=== PATIENT | male | born 1965 | race African-American/Black ===

== ENCOUNTER 2018-07-26 13:42 | Emergency (ER) | payer OTHER ==
--- NOTE | 2018-07-26 14:53 | PDOC ---
Rapid Medical Evaluation Chief Complaint: Pain, Acute Time Seen by Provider: 07/26/18 14:52 Medical Evaluation: Allergies Allergy/AdvReac Type Severity Reaction Status Date / Time No Known Allergies Allergy Verified 07/26/18 14:52 07/26/18 14:52 I performed a brief in-person evaluation of this patient. Chief complaint: Reports hyperextended left elbow during martial arts on sunday Pertinent physical exam findings: Tenderness and limited ROM of elbow I have ordered the following: Left elbow xray Patient to proceed to the ED for further evaluation. Discharge Disposition - Diagnosis Elbow injury - Referrals - Patient Instructions - Post Discharge Activity
[2018-07-26 14:56] VITALS: BP 157/89; PULSE 82; TEMP 98.1; BMI 43.0
--- NOTE | 2018-07-26 16:02 | PDOC ---
History of Present Illness - General Chief Complaint: Pain, Acute Stated Complaint: RT ELBOW INJURY Time Seen by Provider: 07/26/18 14:52 History Source: Patient Exam Limitations: No Limitations - History of Present Illness Initial Comments: 07/26/18 16:16 Patient states was performing some martial arts on Sunday this week when he hyperextended his left elbow. States dislocated and reduced itself. This has happened in the past to his right arm with minimal consequence. States was hoping with icing and rest would resolve however has progressively worsen. Patient is taking Xaralta for history of PE which is probably caused excessive swelling Occurred: reports: yesterday Severity: reports: moderate, severe Pain Location: reports: upper extremity (left elbow) Loss of Consciousness: no loss of consciousness Associated Symptoms (Fall): denies symptoms Past History - Travel Traveled outside of the country in the last 30 days: No (left elbow) Close contact w/someone who was outside of country & ill: No - Past Medical History Allergies/Adverse Reactions: Allergies Allergy/AdvReac Type Severity Reaction Status Date / Time No Known Allergies Allergy Verified 07/26/18 14:52 Home Medications: Ambulatory Orders Lisinopril [Prinivil] 20 mg PO DAILY 07/26/18 Metoprolol Succinate 100 mg PO ASDIR 07/26/18 Oxycodone HCl/Acetaminophen [Percocet 5-325 mg Tablet -] 1 - 2 tab PO Q4H PRN # 10 tablet MDD 4 07/26/18 COPD: No CHF: Yes HTN: Yes - Immunization History Immunization Up to Date: Yes - Suicide/Smoking/Psychosocial Hx Smoking History: Never smoked Information on smoking cessation initiated: No Hx Alcohol Use: No Drug/Substance Use Hx: No Review of Systems - Review of Systems Able to Perform ROS?: Yes Is the patient limited Urdu proficient: Yes Constitutional: Yes: See HPI. No: Symptoms Reported, Fever, Malaise HEENTM: Yes: See HPI. No: Symptoms Reported Musculoskeletal: Yes: Symptoms Reported, See HPI, Joint Pain, Joint Swelling ( patient with continued swelling, tenderness to left elbow with range of motion difficulty. Has no crepitus or step-offs, but unable to supinate or pronate at wrist. Neurovascular intact to fingers with strong grasp but has swelling to his left hand as well. Able to contract bicep muscle but difficult due to swelling and pain with range of motion.) Integumentary: Yes: Symptoms Reported, See HPI, Bruising Neurological: Yes: Symptoms reported, See HPI All Other Systems: Reviewed and Negative *Physical Exam - Vital Signs Last Vital Signs Temp Pulse Resp BP Pulse Ox 98.1 F 82 16 157/89 99 07/26/18 14:52 07/26/18 14:52 07/26/18 14:52 07/26/18 14:52 07/26/18 14:52 - Physical Exam General Appearance: Yes: Nourished, Appropriately Dressed, Apparent Distress, Mild Distress, Moderate Distress HEENT: positive: JACKIE, Normal ENT Inspection, TMs Normal, Pharynx Normal Neck: positive: Supple. negative: Tender Respiratory/Chest: positive: Lungs Clear. negative: Chest Tender Gastrointestinal/Abdominal: positive: Soft. negative: Tender Extremity: positive: Tender. negative: Normal Range of Motion Integumentary: positive: Swelling (left elbow), Ecchymosis, Bruising. negative : Normal Color Neurologic: positive: shank paperer II-XII NML intact, Fully Oriented, Alert, Normal Mood/ Affect, Normal Response Moderate Sedation - Procedure Monitoring Vital Signs: Procedure Monitoring Vital Signs Temperature 98.1 F 07/26/18 14:52 Pulse Rate 82 07/26/18 14:52 Respiratory Rate 16 07/26/18 14:52 Blood Pressure 157/89 07/26/18 14:52 O2 Sat by Pulse Oximetry (%) 99 07/26/18 14:52 Progress Note - Progress Note Progress Note: Left elbow strain/sprain, sling placed and patient encouraged to follow up with orthopedist first thing Sunday or return to emergency department for worsening swelling, any compartment syndrome symptoms to hand or forearm. *DC/Admit/Observation/Transfer Diagnosis at time of Disposition: Elbow injury Qualifiers: Encounter type: initial encounter Laterality: left Qualified Code(s): S59.902A - Unspecified injury of left elbow, initial encounter - Discharge Dispostion Disposition: HOME Condition at time of disposition: Stable Decision to Admit order: No - Prescriptions Prescriptions: Oxycodone HCl/Acetaminophen [Percocet 5-325 mg Tablet -] 1 - 2 tab PO Q4H PRN # 10 tablet MDD 4 PRN Reason: Pain - Referrals Referrals: Eliseo Reyes [Primary Care Provider] - Eddi Ford MD [Staff Physician] - - Patient Instructions Printed Discharge Instructions: How to Use a Sling, DI for Elbow Sprain Additional Instructions: Rest, ice to area on and off for 15 minutes 4-6 times a day Avoid heavy lifting or exercise until pain and swelling is resolved or until further directed Keep area highly elevated to reduce swelling Use splints/Jono wrap as directed Followup with orthopedist in one to 2 days if not improving, if significantly improved may wait one week for followup with orthopedist May use ibuprofen every 6 hours as needed for pain May use Percocet for severe pain - Post Discharge Activity Forms/Work/School Notes: Back to Work
== END 2018-07-26 16:39 | disposition home or self-care (01) ==
LOC: JERFT 13:42
DX: S53.492A Other sprain of left elbow, initial encounter (principal); X50.0XXA Overexertion from strenuous movement or load, initial encounter; Y93.75 Activity, martial arts; Y92.89 Other specified places as the place of occurrence of the external cause; Y99.8 Other external cause status; I11.0 Hypertensive heart disease with heart failure; I50.9 Heart failure, unspecified; Z86.711 Personal history of pulmonary embolism; Z79.01 Long term (current) use of anticoagulants
CPT/HCPCS: 73070-TC-LT-FY; 99281-25